=== PATIENT | male | born 1950 | race Caucasian/White ===

== ENCOUNTER → 2019-08-13 | Outpatient (CLI) | payer MEDICARE, OTHER ==
--- NOTE | 2019-08-14 12:19 | RADIOLOGY REPORT (SQ) ---
EXAM DESCRIPTION: MRI RT UPPER JOINT WITHOUT COMPLETED DATE/TIME: 08/13/2019 5:05 pm REASON FOR STUDY: (M25.511)PAIN IN RIGHT SHOULDER M25.511 PAIN IN RIGHT SHOULDER COMPARISON: None. TECHNIQUE: Right shoulder images acquired and stored on PACS. Multiplanar imaging to include fat sen sitive sequences such as T1, water sensitive sequences such as FST2/STIR, cartilage sensitive sequenc es such as FSPD/gradient-echo sequences. LIMITATIONS: Motion. FINDINGS: BONE MARROW AND CORTEX: No worrisome bone lesions or marrow replacement. No occult fractur es. JOINT OR BURSAL EFFUSION: Small amount of fluid in the subacromial bursa. GLENO-HUMERAL ARTICULATION: Intact. Central cartilage loss. Superior migration of the humeral head. ACROMION AND AC JOINT: Type 2 acromion. Moderate AC joint arthropathy. ROTATOR CUFF AND INTERVAL: Full-thickness tears of the supraspinatus and infraspinatus. Large chroni c interstitial tear infraspinatus musculotendinous junction. No rotator interval tear. No rotator interval thickening to suggest adhesive capsulitis. LABRUM AND BICEPS LABRAL COMPLEX: Fraying of the superior labrum. Distal biceps intact. REMAINDER OF LABRUM AND IGHL : Intact. PERIARTICULAR AND ADJACENT SOFT TISSUES: No masses or abnormal nodes. OTHER: No other significant finding. IMPRESSION: Full-thickness tears of the supraspinatus and infraspinatus. 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 TECHNICAL DOCUMENTATION: JOB ID: [id number] [employer]- All Rights Reserved Reading location - IP/workstation name: [email or web address]
== END ==
LOC: RAD 15:49
PROVIDERS: ATTEND Orthopaedic Surgery
DX: M25.511 Pain in right shoulder (principal); M75.121 Complete rotator cuff tear or rupture of right shoulder, not specified as traumatic; M12.811 Other specific arthropathies, not elsewhere classified, right shoulder

== ENCOUNTER → 2020-11-01 | Outpatient (CLI) | payer MEDICARE, OTHER ==
[~2020-11-01] MED LIST: COVID-19 VACCINE (PFIZER)/PF 30 MCG/0.3 ML VIAL IM ONE; EPINEPHRINE INJ/PF 1 MG/1 ML AMPULE IM PRN
--- OUTSIDE RECORDS SUMMARY | 2020-11-04 10:29 | XMS REPORT ---
:1950 [facility] [place] [facility] [address] [place] [address] Care Team Providers Name Role Phone THERESA CORNELIUS MD Attending Clinician Unavailable Henna Nevarez Attending Clinician Unavailable Isabel Anderson MD Attending Clinician Unavailable Allergies, Adverse Reactions, Alerts This patient has no known allergies or adverse reactions. Medications Ordered Filled Start Stop Current Ordering Indication Dosage Frequency Signature Comments Components Medication Medication Date Date Medication? Clinician (SIG) Name Name Trimethopri 2019-10 Yes 1 Twice A m/Sulfameth 0-21 Day oxazole 16:16: 00 Problems Condition Condition Condition Status Onset Resolution Last Treatin g Comments Name Details Category Date Date Treatment Clinician Date Postoperati Postoperati Problem active ve ve hemorrhage hemorrhage from from incision incision Puncture Puncture Problem active wound of wound of finger of finger of left hand left hand Procedures Procedure Date / Time Performed Performing Clinician Nini cha OFFICE/OUTPATIENT VISIT, NEW 2019-06-20 14:00:00 ASSAY TEST FOR BLOOD, FECAL 2016-03-11 10:45:00 ELECTROCARDIOGRAM, COMPLETE 2016-03-11 10:45:00 PREV VISIT, EST, 65 \T\ OVER 2016-03-11 10:45:00 URINALYSIS, AUTO, W/O SCOPE 2016-03-02 08:15:00 ROUTINE VENIPUNCTURE 2016-03-02 08:15:00 LIPID PANEL 2016-03-02 08:15:00 ASSAY OF PSA, TOTAL 2016-03-02 08:15:00 COMPREHEN METABOLIC PANEL 2016-03-02 08:15:00 COMPLETE CBC W/AUTO DIFF WBC 2016-03-02 08:15:00 OFFICE/OUTPATIENT VISIT, EST 2015-10-06 12:00:00 OFFICE/OUTPATIENT VISIT, EST 2015-09-08 12:00:00 BASIC METABOLIC PANEL 2015-09-08 12:00:00 ROUTINE VENIPUNCTURE 2015-09-08 12:00:00 TRANSFERASE (AST) (SGOT) 2015-09-08 12:00:00 ASSAY OF BLOOD LIPOPROTEIN 2015-09-08 12:00:00 FLU VACCINE AGE 3 \T\ OVER, IM 2015-08-13 13:00:00 IMMUNIZATION ADMIN 2015-08-13 13:00:00 OFFICE/OUTPATIENT VISIT, EST 2015-03-04 12:15:00 ELECTROCARDIOGRAM, COMPLETE 2015-03-04 12:15:00 ASSAY TEST FOR BLOOD, FECAL 2015-03-04 12:15:00 URINALYSIS, AUTO, W/O SCOPE 2015-02-26 08:15:00 ASSAY OF PSA, TOTAL 2015-02-26 08:15:00 LIPID PANEL 2015-02-26 08:15:00 COMPREHEN METABOLIC PANEL 2015-02-26 08:15:00 COMPLETE CBC W/AUTO DIFF WBC 2015-02-26 08:15:00 ROUTINE VENIPUNCTURE 2015-02-26 08:15:00 BASIC METABOLIC PANEL 2014-09-03 07:45:00 TRANSFERASE (AST) (SGOT) 2014-09-03 07:45:00 ROUTINE VENIPUNCTURE 2014-09-03 07:45:00 OFFICE/OUTPATIENT VISIT, EST 2014-09-03 07:45:00 LIPID PANEL 2014-09-03 07:45:00 IMMUNIZATION ADMIN 2014-08-14 15:15:00 FLU VACCINE AGE 3 \T\ OVER, IM 2014-08-14 15:15:00 OFFICE/OUTPATIENT VISIT, EST 2014-02-28 14:30:00 ELECTROCARDIOGRAM, COMPLETE 2014-02-28 14:30:00 COMPREHEN METABOLIC PANEL 2014-02-19 14:00:00 COMPLETE CBC W/AUTO DIFF WBC 2014-02-19 14:00:00 ROUTINE VENIPUNCTURE 2014-02-19 14:00:00 LIPID PANEL 2014-02-19 14:00:00 ASSAY OF PSA, TOTAL 2014-02-19 14:00:00 URINALYSIS, AUTO, W/O SCOPE 2014-02-19 14:00:00 Medical conference by physic 2014-01-17 00:00:00 Results Test Description Test Time Test Comments Text Results Atomic Results Result Comments OCCULT BLOOD AUTO OV 2017-03-15 09:09:00 Test Item Value Reference Range Comments OCBS (test code = OCBS) Negative Negative CBC WITH [id number] 08:26:00 Test Item Value Reference Range Comments MCHC (test code = MCHC) 33.8 G/DL 32.0-35.5 GR% (test code = GR%) 63.4 % 43.3-71.9 WBC (test code = WBC) 4.4 K/UL 3.6-11.1 RDW (test code = RDW) 14.4 % 12.0-15.1 EO% (test code = EO%) 1.9 % 0.0-7.8 MO# (test code = MO#) 0.4 # 0.3-0.8 MPV (test code = MPV) 8.1 FL 7.5-10.7 RBC (test code = RBC) 4.86 M/uL 4.27-5.49 LY# (test code = LY#) 1.1 L K/uL 1.1-2.7 GR# (test code = GR#) 2.8 K/uL 1.9-7.2 MCV (test code = MCV) 92 FL 79-95 BA% (test code = BA%) 0.5 % 0.0-1.1 BA# (test code = BA#) 0.0 K/uL 0.0-0.1 LY% (test code = LY%) 24.6 % 16.8-43.5 MO% (test code = MO%) 9.6 % 4.6-12.3 PLT (test code = PLT) 166 K/UL 165-353 HGB (test code = HGB) 15.1 G/DL 12.9-16.1 MCH (test code = MCH) 31.1 PQ 26.8-33.2 HCT (test code = HCT) 44.7 % 37.7-46.5 EO# (test code = EO#) 0.1 # 0.0-0.5 25 OH VITAMIN D [id number] 08:26:00 Test Item Value Reference Range Comments VIT D (test code = VIT D) 26 NG/ML 30-100 CHEM [id number] 08:26:00 Test Item Value Reference Range Comments TP (test code = TP) 6.9 G/DL 6.9-8.5 GLU (test code = GLU) 89 MG/DL 70-110 ALB (test code = ALB) 3.8 G/DL 3.2-4.7 CL (test code = CL) 106 MMOL/L 98-110 GLOB (test code = GLOB) 3.1 1.9-4.5 BUN (test code = BUN) 15 MG/DL 7-18 EGFR (test code = EGFR) 78.93 >60.00 BILT (test code = BILT) 0.8 MG/DL 0.1-1.0 EGFRAA (test code = EGFRAA) 95.66 >60.00 BUN/CREAT RATIO (test code = BUN/CREAT RATIO) 15 10 -14 CR (test code = CR) 1.0 MG/DL 0.4-1.3 CA (test code = CA) 8.8 MG/DL 8.5-10.1 CO2 (test code = CO2) 28.1 MMOL/L 21.0-32.0 ALT (test code = ALT) 28 U/L 9-61 ALK PHOS (test code = ALK PHOS) 60 U/L 50-136 ION GAP (test code = ION GAP) 12 4-16 AST (test code = AST) 20 U/L 9-37 K (test code = K) 4.0 MMOL/L 3.5-5.1 NA (test code = NA) 142 MMOL/L 135-145 URINALYSIS([id number])2017-03-09 08:26:00 Test Item Value Reference Range Comments UBIL (test code = UBIL) NEGATIVE MG/DL Negative UGLU (test code = UGLU) NEGATIVE Negative SPGR (test code = SPGR) 1.020 1.010-1.030 COLOR (test code = COLOR) YELLOW Yellow TPU (test code = TPU) NEGATIVE Negative KIRAN (test code = KIRAN) NEGATIVE Negative NIT (test code = NIT) NEGATIVE Negative CLAR (test code = CLAR) CLEAR Clear UKET (test code = UKET) NEGATIVE Negative UBLD (test code = UBLD) NEGATIVE Negative UUROBIL (test code = UUROBIL) 1.0 0.2, 1.0 PH (test code = PH) 6.0 LIPID [id number] 08:26:00 Test Item Value Reference Range Comments DLDL (test code = DLDL) 100 MG/DL 100-130 CHOL (test code = CHOL) 150 MG/DL 140-200 TGL (test code = TGL) 113 MG/DL 30-200 CHD (test code = CHD) 23.33 HDL (test code = HDL) 35 MG/DL 32-96 PSA [id number] 08:26:00 Test Item Value Reference Range Comments PSA (test code = PSA) 0.6 NG/ML 0.0-4.0 AST(SGOT)2016-09-14 09:26:00 Test Item Value Reference Range Comments AST (test code = AST) 20 U/L 9-37 LIPID [id number] 09:26:00 Test Item Value Reference Range Comments DLDL (test code = DLDL) 97 MG/DL 100-130 TGL (test code = TGL) 42 MG/DL 30-200 HDL (test code = HDL) 34 MG/DL 32-96 CHD (test code = CHD) 25.00 CHOL (test code = CHOL) 136 MG/DL 140-200 OCCULT BLOOD AUTO [id number] 11:46:00 Test Item Value Reference Range Comments OCBS (test code = OCBS) Negative Negative PSA [id number] 10:22:00 Test Item Value Reference Range Comments PSA (test code = PSA) 0.5 NG/ML 0.0-4.0 CBC WITH [id number] 10:22:00 Test Item Value Reference Range Comments HCT (test code = HCT) 47.7 H % 37.7-46.5 RDW (test code = RDW) 14.1 % 12.0-15.1 LY% (test code = LY%) 23.1 % 16.8-43.5 WBC (test code = WBC) 5.8 K/UL 3.6-11.1 BA% (test code = BA%) 0.7 % 0.0-1.1 LY# (test code = LY#) 1.3 K/uL 1.1-2.7 MCV (test code = MCV) 92 FL 79-95 EO# (test code = EO#) 0.1 # 0.0-0.5 MPV (test code = MPV) 7.9 FL 7.5-10.7 GR# (test code = GR#) 3.7 K/uL 1.9-7.2 HGB (test code = HGB) 16.0 G/DL 12.9-16.1 EO% (test code = EO%) 2.3 % 0.0-7.8 PLT (test code = PLT) 187 K/UL 165-353 RBC (test code = RBC) 5.17 M/uL 4.27-5.49 BA# (test code = BA#) 0.0 K/uL 0.0-0.1 MCH (test code = MCH) 30.9 PQ 26.8-33.2 MO% (test code = MO%) 9.7 % 4.6-12.3 GR% (test code = GR%) 64.2 % 43.3-71.9 MO# (test code = MO#) 0.6 # 0.3-0.8 MCHC (test code = MCHC) 33.5 G/DL 32.0-35.5 CHEM [id number] 10:22:00 Test Item Value Reference Range Comments BUN/CREAT RATIO (test code = BUN/CREAT RATIO) 19 10 -14 EGFR (test code = EGFR) 70.92 >60.00 BUN (test code = BUN) 21 MG/DL 7-18 ALT (test code = ALT) 31 U/L 9-61 K (test code = K) 5.1 MMOL/L 3.5-5.1 NA (test code = NA) 141 MMOL/L 135-145 GLU (test code = GLU) 94 MG/DL 70-110 BILT (test code = BILT) 0.7 MG/DL 0.1-1.0 CR (test code = CR) 1.1 MG/DL 0.4-1.3 ALB (test code = ALB) 4.2 G/DL 3.2-4.7 CL (test code = CL) 105 MMOL/L 98-110 AST (test code = AST) 15 U/L 9-37 CO2 (test code = CO2) 32.7 MMOL/L 21.0-32.0 EGFRAA (test code = EGFRAA) 85.96 >60.00 ALK PHOS (test code = ALK PHOS) 69 U/L 50-136 CA (test code = CA) 9.2 MG/DL 8.5-10.1 TP (test code = TP) 7.2 G/DL 6.9-8.5 GLOB (test code = GLOB) 3.0 1.9-4.5 ION GAP (test code = ION GAP) 8 4-16 URINALYSIS([id number])2016-03-02 10:22:00 Test Item Value Reference Range Comments UBIL (test code = UBIL) NEGATIVE MG/DL Negative UGLU (test code = UGLU) NEGATIVE Negative CLAR (test code = CLAR) CLEAR Clear COLOR (test code = COLOR) YELLOW Yellow UKET (test code = UKET) NEGATIVE Negative UBLD (test code = UBLD) NEGATIVE Negative PH (test code = PH) 5.5 KIRAN (test code = KIRAN) NEGATIVE Negative NIT (test code = NIT) NEGATIVE Negative UUROBIL (test code = UUROBIL) 1.0 0.2, 1.0 TPU (test code = TPU) NEGATIVE Negative SPGR (test code = SPGR) 1.020 1.010-1.030 LIPID [id number] 10:22:00 Test Item Value Reference Range Comments CHOL (test code = CHOL) 149 MG/DL 140-200 TGL (test code = TGL) 66 MG/DL 30-200 DLDL (test code = DLDL) 106 MG/DL 100-130 CHD (test code = CHD) 22.82 HDL (test code = HDL) 34 MG/DL 32-96 LYTES [id number] 12:13:00 Test Item Value Reference Range Comments CO2 (test code = CO2) 25.6 MMOL/L 21.0-32.0 NA (test code = NA) 144 MMOL/L 135-145 ION GAP (test code = ION GAP) 13 4-16 BUN (test code = BUN) 16 MG/DL 7-18 GLU (test code = GLU) 113 MG/DL 70-110 BUN/CREAT RATIO (test code = BUN/CREAT RATIO) 16 10 -14 CA (test code = CA) 8.5 MG/DL 8.5-10.1 CR (test code = CR) 1.0 MG/DL 0.4-1.3 CL (test code = CL) 109 MMOL/L 98-110 K (test code = K) 3.7 MMOL/L 3.5-5.1 DIRECT [id number] 12:13:00 Test Item Value Reference Range Comments DLDL (test code = DLDL) 92 MG/DL 100-130 AST(SGOT)2015-09-08 12:13:00 Test Item Value Reference Range Comments AST (test code = AST) 19 U/L 9-37 OCCULT BLOOD AUTO [id number] 13:00:00 Test Item Value Reference Range Comments OCBS (test code = OCBS) Negative Negative PSA [id number] 13:02:00 Test Item Value Reference Range Comments PSA (test code = PSA) 0.6 NG/ML 0.0-4.0 CHEM [id number] 13:02:00 Test Item Value Reference Range Comments CA (test code = CA) 8.7 MG/DL 8.5-10.1 EGFR (test code = EGFR) 71.14 >60.00 ALK PHOS (test code = ALK PHOS) 63 U/L 50-136 CO2 (test code = CO2) 30.7 MMOL/L 21.0-32.0 NA (test code = NA) 142 MMOL/L 135-145 BUN/CREAT RATIO (test code = BUN/CREAT RATIO) 10 10 -14 CR (test code = CR) 1.1 MG/DL 0.4-1.3 CL (test code = CL) 107 MMOL/L 98-110 BUN (test code = BUN) 11 MG/DL 7-18 K (test code = K) 4.8 MMOL/L 3.5-5.1 AST (test code = AST) 16 U/L 9-37 GLOB (test code = GLOB) 3.2 1.9-4.5 ION GAP (test code = ION GAP) 9 4-16 EGFRAA (test code = EGFRAA) 86.22 >60.00 TP (test code = TP) 7.2 G/DL 6.9-8.5 ALB (test code = ALB) 4.0 G/DL 3.2-4.7 GLU (test code = GLU) 87 MG/DL 70-110 ALT (test code = ALT) 31 U/L 9-61 BILT (test code = BILT) 0.9 MG/DL 0.1-1.0 LIPID [id number] 13:02:00 Test Item Value Reference Range Comments HDL (test code = HDL) 35 MG/DL 32-96 TGL (test code = TGL) 48 MG/DL 30-200 DLDL (test code = DLDL) 102 MG/DL 100-130 CHD (test code = CHD) 23.97 CHOL (test code = CHOL) 146 MG/DL 140-200 CBC WITH [id number] 13:02:00 Test Item Value Reference Range Comments MO# (test code = MO#) 0.4 # 0.3-0.8 HCT (test code = HCT) 42.6 % 37.7-46.5 LY# (test code = LY#) 1.1 K/uL 1.1-2.7 LY% (test code = LY%) 30.9 % 16.8-43.5 MCV (test code = MCV) 92 FL 79-95 GR# (test code = GR#) 2.1 K/uL 1.9-7.2 MPV (test code = MPV) 7.8 FL 7.5-10.7 BA# (test code = BA#) 0.0 K/uL 0.0-0.1 BA% (test code = BA%) 0.7 % 0.0-1.1 GR% (test code = GR%) 56.3 % 43.3-71.9 RDW (test code = RDW) 14.1 % 12.0-15.1 RBC (test code = RBC) 4.63 M/uL 4.27-5.49 MCH (test code = MCH) 31.3 PQ 26.8-33.2 PLT (test code = PLT) 163 L K/UL 165-353 MO% (test code = MO%) 9.6 % 4.6-12.3 HGB (test code = HGB) 14.5 G/DL 12.9-16.1 WBC (test code = WBC) 3.7 K/UL 3.6-11.1 EO# (test code = EO#) 0.1 # 0.0-0.5 EO% (test code = EO%) 2.5 % 0.0-7.8 MCHC (test code = MCHC) 33.9 G/DL 32.0-35.5 URINALYSIS([id number] 13:02:00 Test Item Value Reference Range Comments UKET (test code = UKET) NEGATIVE Negative TPU (test code = TPU) NEGATIVE Negative UBIL (test code = UBIL) NEGATIVE MG/DL Negative UBLD (test code = UBLD) NEGATIVE Negative NIT (test code = NIT) NEGATIVE Negative SPGR (test code = SPGR) 1.010 1.010-1.030 CLAR (test code = CLAR) CLEAR Clear UUROBIL (test code = UUROBIL) 0.2 0.2, 1.0 COLOR (test code = COLOR) YELLOW Yellow UGLU (test code = UGLU) NEGATIVE Negative KIRAN (test code = KIRAN) NEGATIVE Negative PH (test code = PH) 6.0 LYTES [id number] 08:01:00 Test Item Value Reference Range Comments BUN (test code = BUN) 14 MG/DL 7-18 CO2 (test code = CO2) 28.2 MMOL/L 21.0-32.0 K (test code = K) 4.0 MMOL/L 3.5-5.1 BUN/CREAT RATIO (test code = BUN/CREAT RATIO) 13 10 -14 GLU (test code = GLU) 84 MG/DL 70-110 NA (test code = NA) 143 MMOL/L 135-145 CR (test code = CR) 1.1 MG/DL 0.4-1.3 CA (test code = CA) 8.9 MG/DL 8.5-10.1 ION GAP (test code = ION GAP) 12 4-16 CL (test code = CL) 107 MMOL/L 98-110 LIPID [id number] 08:01:00 Test Item Value Reference Range Comments CHD (test code = CHD) 23.02 HDL (test code = HDL) 32 MG/DL 32-96 CHOL (test code = CHOL) 139 MG/DL 140-200 TGL (test code = TGL) 96 MG/DL 30-200 DLDL (test code = DLDL) 101 MG/DL 100-130 AST(SGOT)2014-09-03 08:01:00 Test Item Value Reference Range Comments AST (test code = AST) 21 U/L 9-37 CHEM [id number] 08:47:00 Test Item Value Reference Range Comments CL (test code = CL) 105 MMOL/L 98-110 ION GAP (test code = ION GAP) 12 4-16 ALB (test code = ALB) 4.0 G/DL 3.2-4.7 GLU (test code = GLU) 97 MG/DL 70-110 EGFRAA (test code = EGFRAA) 86.49 >60.00 BUN/CREAT RATIO (test code = BUN/CREAT RATIO) 18 10 -14 AST (test code = AST) 22 U/L 9-37 CA (test code = CA) 8.9 MG/DL 8.5-10.1 ALK PHOS (test code = ALK PHOS) 72 U/L 50-136 TP (test code = TP) 7.3 G/DL 6.9-8.5 GLOB (test code = GLOB) 3.3 1.9-4.5 NA (test code = NA) 140 MMOL/L 135-145 K (test code = K) 4.3 MMOL/L 3.5-5.1 CO2 (test code = CO2) 27.3 MMOL/L 21.0-32.0 CR (test code = CR) 1.1 MG/DL 0.4-1.3 ALT (test code = ALT) 29 U/L 9-61 EGFR (test code = EGFR) 71.37 >60.00 BILT (test code = BILT) 0.9 MG/DL 0.1-1.0 BUN (test code = BUN) 20 MG/DL 7-18 [id number] 08:47:00 Test Item Value Reference Range Comments PSA (test code = PSA) 0.8 NG/ML 0.0-4.0 URINALYSIS([id number])[id number] 08:47:00 Test Item Value Reference Range Comments UKET (test code = UKET) NEGATIVE Negative TPU (test code = TPU) NEGATIVE Negative UBIL (test code = UBIL) NEGATIVE MG/DL Negative UUROBIL (test code = UUROBIL) 1.0 0.2, 1.0 UGLU (test code = UGLU) NEGATIVE Negative UBLD (test code = UBLD) NEGATIVE Negative SPGR (test code = SPGR) 1.015 1.010-1.030 CLAR (test code = CLAR) CLEAR Clear COLOR (test code = COLOR) YELLOW Yellow KIRAN (test code = KIRAN) NEGATIVE Negative PH (test code = PH) 6.0 NIT (test code = NIT) NEGATIVE Negative LIPID [id number] 08:47:00 Test Item Value Reference Range Comments CHD (test code = CHD) 19.61 TGL (test code = TGL) 78 MG/DL 30-200 HDL (test code = HDL) 30 MG/DL 32-96 CHOL (test code = CHOL) 153 MG/DL 140-200 DLDL (test code = DLDL) 109 MG/DL 100-130 CBC WITH [id number] 08:47:00 Test Item Value Reference Range Comments BA# (test code = BA#) 0.0 K/uL 0.0-0.1 MCH (test code = MCH) 31.4 PQ 26.8-33.2 LY# (test code = LY#) 1.2 K/uL 1.1-2.7 MCV (test code = MCV) 92 FL 79-95 EO% (test code = EO%) 1.7 % 0.0-7.8 MO# (test code = MO#) 0.4 # 0.3-0.8 RBC (test code = RBC) 4.72 M/uL 4.27-5.49 HCT (test code = HCT) 43.2 % 37.7-46.5 BA% (test code = BA%) 0.8 % 0.0-1.1 RDW (test code = RDW) 13.7 % 12.0-15.1 MCHC (test code = MCHC) 34.3 G/DL 32.0-35.5 MO% (test code = MO%) 8.8 % 4.6-12.3 PLT (test code = PLT) 168 K/UL 165-353 HGB (test code = HGB) 14.8 G/DL 12.9-16.1 WBC (test code = WBC) 4.7 K/UL 3.6-11.1 MPV (test code = MPV) 8.0 FL 7.5-10.7 EO# (test code = EO#) 0.1 # 0.0-0.5 GR# (test code = GR#) 2.9 K/uL 1.9-7.2 GR% (test code = GR%) 63.1 % 43.3-71.9 LY% (test code = LY%) 25.6 % 16.8-43.5 Assessments Condition Name Status Diagnosis Date Treating Clinici an Bursitis of right shoulder Active Primary osteoarthritis, right hand Active Pain in right shoulder Active Pain in right wrist Active Encntr for general adult medical exam w/o Active abnormal findings Essential (primary) hypertension Active 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 Essential (primary) hypertension Active Other sleep apnea Active Essential (primary) hypertension Active Hyperlipidemia, unspecified Active Encounter for immunization Active Hyperlipidemia (Unspecified) Active Tachycardia - Unspecified Active Exam - General Medical Active Sleep Apnea - Unspecified Active Neoplasm - Skin (Benign)(Unspecified) Active Tachycardia Active Hyperlipidemia Active Tachycardia Active Hyperlipidemia Active Tachycardia Active Hyperlipidemia Active Tachycardia Active Hyperlipidemia Active Tachycardia Active Hyperlipidemia Active Tachycardia Active Hyperlipidemia Active Exam - General Medical Active Tachycardia - Unspecified Active Hyperlipidemia (Unspecified) Active Sleep Apnea - Unspecified Active Vaccination - Influenza Active Hyperlipidemia (Unspecified) Active Tachycardia - Unspecified Active Sleep Apnea - Unspecified Active Disorder of sleep-wake cycle Active Disorder of sleep-wake cycle Active Disorder of sleep-wake cycle Active Disorder of sleep-wake cycle Active Disorder of sleep-wake cycle Active Disorder of sleep-wake cycle Active Disorder of sleep-wake cycle Active Disorder of sleep-wake cycle Active Exam - General Medical Active Encounters Start End Encounter Admission Attending Care Care Encounter Date/Time Date/Time Type Type Clinicians Facility Department ID 2020-07-30 2020-07-30 Registered MINIOR, LUX Andesron [id number] 15:34:00 15:34:00 Emergency THERESA HAND [address] 2019-06-20 2019-06-20 Outpatient [facility] [id number] 14:00:00 14:00:00 [facility] [id number] \T\ Sports [id number] [facility] [id number] 2016-03-11 2016-03-11 Outpatient Justin Bustamante [id number] 10:45:00 10:45:00 MD [facility] [id number] [facility] [id number] [employer] [id number] 2016-03-02 2016-03-02 Outpatient Justin Bustamante [id number] 08:15:00 08:15:00 MD [facility] [id number] [facility] [id number] [employer] [id number] 2015-10-06 2015-10-06 Outpatient Justin Bustamante [id number] 12:00:00 12:00:00 MD [facility] [id number] Health [id number] [employer], [employer] [id number] 2015-09-08 2015-09-08 Outpatient Justin Bustamante [id number] 12:00:00 12:00:00 MD [facility] [id number] Health [id number] [employer], [employer] [id number] 2015-08-13 2015-08-13 Outpatient Justin Bustamante [id number] 13:00:00 13:00:00 MD [facility] [id number] Health [id number] [employer] [id number] 2015-03-04 2015-03-04 Outpatient Justin Bustamante [id number] 12:15:00 12:15:00 MD [facility] [id number] B [facility] [id number] [employer], [employer] [id number] 2015-02-26 2015-02-26 Outpatient Justin Bustamante [id number] 08:15:00 08:15:00 MD [facility] [id number] [facility] [id number] [employer]. [id number] 2014-09-03 2014-09-03 Outpatient Justin Bustamante [id number] 07:45:00 07:45:00 MD [facility] [id number] 8 [facility] [id number] [place], [employer]. [id number] 2014-08-14 Outpatient Justin Bustamante [id number] 15:15:00 15:15:00 MD [facility] [id number] B Health [id number] [place], [employer]. [id number] 2014-02-28 2014-02-28 Outpatient Justin Bustamante [id number] 14:30:00 14:30:00 MD [facility] [id number] B Health [id number] [place], [employer]. [id number] 2014-02-19 2014-02-19 Outpatient Justin Bustamante [id number] 14:00:00 14:00:00 , [facility] [id number] Health [id number] [facility] [id number] 2014-01-17 2014-01-17 Outpatient Justin Bustamante [id number] 00:00:00 00:00:00 , [facility] [id number] B [facility] [id number] [facility] [id number] Payers Payer Name Policy Type Policy Number Effective Date Expiration D ate Commercial Other 1 2013 00:00:00 Commercial Other 1 Social History Social History Observation Description Sex Male Vital Signs Vital Name Observation Time Observation Value Comments WEIGHT 2020-07-30 15:34:00 82.261381 kg HEIGHT 2020-07-30 15:34:00 187.751277 cm
== END ==
LOC: EMPHEALTH 15:01
PROVIDERS: ATTEND Internal Medicine
DX: Z23 Encounter for immunization (principal)
CPT/HCPCS: 91300